=== PATIENT | female | born 1965 | race Caucasian/White ===

== ENCOUNTER 2018-03-04 15:23 | Emergency (ER) | payer OTHER ==
[2018-03-04 15:29] VITALS: PULSE 88; RESP 18; TEMP 98.2
[2018-03-04 15:49] VITALS: BP 146/90
--- NOTE | 2018-03-04 15:52 | ED ---
General Adult HPI - General Chief complaint: ENT Stated complaint: Lt ear pain Source: patient, RN notes reviewed Mode of arrival: ambulatory Limitations: no limitations - History of Present Illness Initial comments: Patient is a 53-year-old female who presents the emergency department with complaints of left ear pain and swelling for 3 days. Patient denies any recent ear drainage, congestion, cough, fever, chills, shortness of breath, chest pain , back pain, abdominal pain, nausea or vomiting, headaches or visual changes, or any other complaints. - Related Data Previous Rx's Medication Instructions Recorded Ymathfdi-Lnklqgdyd-Sp Otic 4 drops LEFT EAR QID 7 Days 03/04/18 [Cortisporin Otic Soln] Allergies Allergy/AdvReac Type Severity Reaction Status Date / Time diphenhydramine Allergy Unknown Verified 03/04/18 15:29 [From Bensallyl] Review of Systems ROS Statement: Those systems with pertinent positive or pertinent negative responses have been documented in the HPI. ROS Other: All systems not noted in ROS Statement are negative. Past Medical History Past Medical History: No Reported History History of Any Multi-Drug Resistant Organisms: None Reported Past Surgical History: Hysterectomy Additional Past Surgical History / Comment(s): Jaw Past Psychological History: No Psychological Hx Reported Smoking Status: Current every day smoker Past Alcohol Use History: None Reported Past Drug Use History: None Reported General Exam Limitations: no limitations General appearance: alert, in no apparent distress Head exam: Present: atraumatic, normocephalic Eye exam: Present: normal appearance, PERRL ENT exam: Present: normal oropharynx, other (Right TM normal. Left ear canal with erythema and edema. Unable to visualize left TM due to edema. No drainage visible.) Neck exam: Present: normal inspection, other (No lymphadenopathy.) Respiratory exam: Present: normal lung sounds bilaterally Cardiovascular Exam: Present: regular rate, normal rhythm Neurological exam: Present: alert, oriented X3 Psychiatric exam: Present: normal affect, normal mood Skin exam: Present: warm, dry Course Vital Signs 03/04/18 03/04/18 15:27 15:48 Temperature 98.2 F Pulse Rate 88 Respiratory 18 Rate Blood Pressure 146/96 146/90 O2 Sat by Pulse 99 Oximetry Medical Decision Making - Medical Decision Making Given toradol here for pain. Will discharge with a prescription for Cortisporin Otic to treat otitis externa. Case discussed in detail with attending physician Dr. Matamoros. Disposition Clinical Impression: Otitis externa Disposition: HOME SELF-CARE Condition: Good Instructions: Otitis Externa (ED) Additional Instructions: Follow-up with your PCP in 2 days. Return to the emergency department if your symptoms worsen or any other concerns. Prescriptions: Zjiozyks-Pfpdluksy-Si Otic [Cortisporin Otic Soln] 4 drops LEFT EAR QID 7 Days Is patient prescribed a controlled substance at d/c from ED?: No Referrals: None,Stated [Primary Care Provider] - 1-2 days Otto Palacio MD [STAFF PHYSICIAN] - 1-2 days Jhon Hernadez DO [Doctor of Osteopathic Medicine] - 1-2 days Time of Disposition: 16:30
[2018-03-04] MEDS ORDERED: KETOROLAC 60 MG/2 ML VIAL IM STA (16:03)
== END 2018-03-04 16:46 | disposition home or self-care (01) ==
LOC: EC 15:23
DX: H60.92 Unspecified otitis externa, left ear (principal); F17.200 Nicotine dependence, unspecified, uncomplicated; Z88.8 Allergy status to other drugs, medicaments and biological substances
CPT/HCPCS: 99282; 96372; J1885

== ENCOUNTER 2018-06-30 12:11 | Emergency (ER) | payer OTHER ==
[2018-06-30 12:16] VITALS: BP 153/91; PULSE 101; RESP 18; TEMP 97.4
--- NOTE | 2018-06-30 14:12 | ED ---
Skin/Abscess/FB HPI - General Chief complaint: Skin/Abscess/Foreign Body Stated complaint: Rash Time Seen by Provider: 06/30/18 13:19 Source: patient, RN notes reviewed, old records reviewed Mode of arrival: ambulatory Limitations: no limitations - History of Present Illness Initial comments: This is a pleasant 53 year old female with pruritic rash over arms, face, chest, back and legs. She reports rash for one week. She had a similiar rash a year ago and went away with antibiotic cream. Patient reports the rash is much more severe this time. No new medications, exposures. No fever. She denies constitutional symptoms, cough, nausea, vomiting. She is up to date on vacccines. - Related Data Previous Rx's Medication Instructions Recorded Cephalexin [Keflex] 500 mg PO Q6HR #40 cap 06/30/18 Hydrocortisone Cream 1 applic TOPICAL QID #60 gm 06/30/18 [Hydrocortisone 1% Cream] Mupirocin [Mupirocin 2%] 1 applic TOPICAL TID #60 gm 06/30/18 Sulfamethox-Tmp 800-160Mg [Bactrim 1 tab PO Q12HR #40 tab 06/30/18 DS 800-160 mg] predniSONE 10 mg PO DAILY #15 tab 06/30/18 Allergies Allergy/AdvReac Type Severity Reaction Status Date / Time diphenhydramine Allergy Unknown Verified 06/30/18 13:38 [From Benadryl] pregabalin [From Lyrica] Allergy Unknown Verified 06/30/18 13:38 Review of Systems ROS Statement: Those systems with pertinent positive or pertinent negative responses have been documented in the HPI. ROS Other: All systems not noted in ROS Statement are negative. Past Medical History Past Medical History: No Reported History History of Any Multi-Drug Resistant Organisms: None Reported Past Surgical History: Hysterectomy Additional Past Surgical History / Comment(s): Jaw Past Psychological History: No Psychological Hx Reported Smoking Status: Current every day smoker Past Alcohol Use History: None Reported Past Drug Use History: None Reported General Exam - General Exam Comments Initial Comments: 53 year old female, no distress. Limitations: no limitations General appearance: alert, in no apparent distress Head exam: Present: atraumatic, normocephalic, normal inspection Eye exam: Present: normal appearance, PERRL, EOMI. Absent: scleral icterus, conjunctival injection, periorbital swelling ENT exam: Present: normal exam, mucous membranes moist Neck exam: Present: normal inspection. Absent: tenderness, meningismus, lym phadenopathy Respiratory exam: Present: normal lung sounds bilaterally. Absent: respiratory distress, wheezes, rales, rhonchi, stridor Cardiovascular Exam: Present: regular rate, normal rhythm, normal heart sounds. Absent: systolic murmur, diastolic murmur, rubs, gallop, clicks GI/Abdominal exam: Present: soft, normal bowel sounds. Absent: distended, tenderness, guarding, rebound, rigid Back exam: Present: normal inspection Neurological exam: Present: alert, oriented X3, CN II-XII intact Psychiatric exam: Present: normal affect, normal mood Skin exam: Present: warm, dry, intact, normal color, rash (Erythematous pauluar lesions scattered over arms, chest, face, and legs. Some areas greater than 5mm and coalesce. ) Course Vital Signs 06/30/18 12:14 Temperature 97.4 F L Pulse Rate 101 H Respiratory 18 Rate Blood Pressure 153/91 O2 Sat by Pulse 98 Oximetry Medical Decision Making - Medical Decision Making 53 year old female with acute rash over arms, legs, and chest. She reports it is prurutitc. She has papular lesions that coalesce. Patient may have folliculitis. She reports she had this before, but never this severe. Patient at this time will be treated with antibiotics, steriods and cream. Discussed she needs to see PCP and dermatology. Return parameters discussed. Disposition Clinical Impression: Acute maculopapular rash Disposition: HOME SELF-CARE Condition: Good Instructions (If sedation given, give patient instructions): Acute Rash (ED) Additional Instructions: Follow up All with primary care doctor and dermatology. Return to the emergency department if any alarming signs or symptoms occur. They should follow-up with dermatology as well. Did take the steroids and antibiotics as prescribed. Using the creams as directed as well. Prescriptions: Sulfamethox-Tmp 800-160Mg [Bactrim DS 800-160 mg] 1 tab PO Q12HR #40 tab Hydrocortisone Cream [Hydrocortisone 1% Cream] 1 applic TOPICAL QID #60 gm Cephalexin [Keflex] 500 mg PO Q6HR #40 cap Mupirocin [Mupirocin 2%] 1 applic TOPICAL TID #60 gm predniSONE 10 mg PO DAILY #15 tab Is patient prescribed a controlled substance at d/c from ED?: No Referrals: Trav Guardado MD [Primary Care Provider] - 1-2 days Neda Rowan MD [STAFF PHYSICIAN] - 1-2 days Time of Disposition: 14:09
== END 2018-06-30 14:28 | disposition home or self-care (01) ==
LOC: EC 12:11
DX: R21 Rash and other nonspecific skin eruption (principal); L98.8 Other specified disorders of the skin and subcutaneous tissue; F17.200 Nicotine dependence, unspecified, uncomplicated; Z88.8 Allergy status to other drugs, medicaments and biological substances
CPT/HCPCS: 99283